=== PATIENT | female | born 2000 | race Caucasian/White ===

== ENCOUNTER 2021-02-27 18:43 | Emergency (ER) | payer OTHER ==
[~2021-02-27 18:43] MED LIST: OXYCODONE-ACET1 EAC1 PO
[2021-02-27 19:38] LABS: BASOPHIL 0.6 % (0-2); EOSINOPHIL 2.2 % (0-5); HCT 40.8 % (37.0-47.0); HGB 13.5 g/dl (12.5-16.0); LYMPHOCYTE 26.2 % (15-48); MCH 24.4 pg (25.0-31.0); MCHC 33.1 g/dL (32.0-36.0); MCV 73.8 fL (78.0-100.0); MONOCYTE 4.5 % (0-12); NEUTROPHIL 66.1 % (41-80); NRBC 0; PLT 340 K/uL (150-400); RBC 5.53 M/uL (4.20-5.40); RDW 13.7 % (11.5-14.0); WBC 10.5 K/uL (4.0-10.5)
[2021-02-27 19:55] LABS: CREATININE 0.92 mg/dL (0.51-0.95); POTASSIUM 3.8 mmol/L (3.5-5.1)
== END 2021-02-27 20:25 | disposition home or self-care (01) ==
LOC: FER 18:43
PROVIDERS: Nurse Practitioner Family
DX: R43.2 Parageusia (principal); Z20.822 Contact with and (suspected) exposure to COVID-19
CPT/HCPCS: 36415; 80048; 85025; 99283; U0002

== ENCOUNTER 2021-08-05 22:21 | Emergency (ER) | payer OTHER ==
[2021-08-06] MEDS ORDERED: IBUPROFEN800 MG PO (02:42)
[2021-08-06] MEDS ORDERED: MEDROL 4MG DOSEP4 MG PO (02:42)
[2021-08-06] MEDS ORDERED: CYCLOBENZAPRINE10 MG PO (02:42)
== END 2021-08-06 02:55 | disposition home or self-care (01) ==
LOC: FER 22:21
DX: S39.012A Strain of muscle, fascia and tendon of lower back, initial encounter (principal); Z87.891 Personal history of nicotine dependence; V49.40XA Driver injured in collision with unspecified motor vehicles in traffic accident, initial encounter; Y92.410 Unspecified street and highway as the place of occurrence of the external cause
CPT/HCPCS: 71045; 72040; 72072; 72100; 72125; 72128; 72131